=== PATIENT | male | born 1970 | race Two or more races ===

== ENCOUNTER 2020-02-10 03:55 | Emergency (ER) | payer OTHER ==
[~2020-02-10] VITALS: Ht 170.2 cm; Wt 59.0 kg
[2020-02-10 03:55] VITALS: BP 138/84
[2020-02-10] MEDS ORDERED: oxyCODONE/APAP (5/325 MG) 1 UDTAB TABLET ONE ×2 (04:27→04:29)
[2020-02-10] MEDS ORDERED: oxyCODONE/APAP (5/325 MG) 1 UDTAB TABLET PO ONE (04:30)
[2020-02-10] MEDS ORDERED: DIAZEPAM 10 MG TABLET PO ONE (04:30)
[2020-02-10] MEDS ORDERED: DIAZEPAM 5 MG TABLET ONE (04:33)
--- NOTE | 2020-02-10 05:32 | NUR ---
MEDICALLY CLEARED FOR BOOKING. PATIENT IS NOW IN CUSTODY OF [facility].
== END 2020-02-10 05:33 ==
LOC: ER 03:57
DX: S16.1XXA Strain of muscle, fascia and tendon at neck level, initial encounter (principal); M25.511 Pain in right shoulder; M54.5 Low back pain; G40.909 Epilepsy, unspecified, not intractable, without status epilepticus; Z88.8 Allergy status to other drugs, medicaments and biological substances; X58.XXXA Exposure to other specified factors, initial encounter; Y93.89 Activity, other specified; Y92.89 Other specified places as the place of occurrence of the external cause; Y99.8 Other external cause status
CPT/HCPCS: 72040-TC; 72100-TC